=== PATIENT | male | born 1980 | race Caucasian/White ===

== ENCOUNTER → 2025-04-28 | Outpatient (CLI) | payer OTHER | LOC: M EKG 12:23 | PROVIDERS: ATTEND Physician Assistant | DX: R00.2 Palpitations (principal) ==

== ENCOUNTER → 2025-07-13 | Outpatient (CLI) | payer OTHER | LOC: M CARPUL 08:16 | PROVIDERS: ATTEND Physician Assistant | DX: R06.00 Dyspnea, unspecified (principal) ==